=== PATIENT | female | born 1970 ===

== ENCOUNTER → 2022-03-31 | Outpatient (CLI) | payer MEDICAID ==
[~2022-03-31] VITALS: Ht 157.5 cm; Wt 65.8 kg
[~2022-03-31] MED LIST: ADENOSINE 55 MG in GIVE UN-DILUTED 0 ML IV ONE; ADENOSINE 90 MG/30 ML INJ IV ONE
== END | disposition home or self-care (01) ==
LOC: Rad HDHVI 13:03
PROVIDERS: ATTEND Internal Medicine
DX: I07.1 Rheumatic tricuspid insufficiency (principal); R00.1 Bradycardia, unspecified; E78.5 Hyperlipidemia, unspecified; I10 Essential (primary) hypertension; R06.09 Other forms of dyspnea; R00.2 Palpitations; R07.9 Chest pain, unspecified; Z82.49 Family history of ischemic heart disease and other diseases of the circulatory system; Z13.6 Encounter for screening for cardiovascular disorders
CPT/HCPCS: 78452; 93005; 93306; 96374; 96375; A9500; J0153